=== PATIENT | female | born 1995 | race Caucasian/White ===

== ENCOUNTER 2017-06-22 21:04 | Emergency (ER) | payer MEDICAID ==
[2017-06-22 21:04] VITALS: BMI 36.6
--- NOTE | 2017-06-22 22:43 | C.PDOC ---
History Of Present Illness 21 year old female presents to the ED c/o cough, subjective fever and left earache for the past 3 days. Patient states she took Mucinex with some improvement to her symptoms. Patient's daughter also a patient in the ED with similar symptoms. Patient denies nausea, vomit, diarrhea, abdominal pain. Time Seen by Provider: 06/22/17 21:55 Chief Complaint (Nursing): Flu-like Symptoms History Per: Patient History/Exam Limitations: no limitations Onset/Duration Of Symptoms: Days Current Symptoms Are (Timing): Gone Location Of Pain: Ear(s) Associated Symptoms: Fever, Cough Recent travel outside of the [place]: No Additional History Per: Patient Past Medical History Reviewed: Historical Data, Nursing Documentation, Vital Signs Vital Signs: Last Vital Signs Temp 98.2 F 06/22/17 21:33 Pulse 81 06/22/17 21:33 Resp 24 06/22/17 21:33 BP 112/79 06/22/17 21:33 Pulse Ox 99 06/22/17 22:43 - Medical History PMH: No Chronic Diseases Surgical History: No Surg Hx Family History: States: Unknown Family Hx - Social History Hx Tobacco Use: No Hx Alcohol Use: No Hx Substance Use: No - Immunization History Hx Tetanus Toxoid Vaccination: No Hx Influenza Vaccination: No Hx Pneumococcal Vaccination: No Review Of Systems Constitutional: Positive for: Fever. Negative for: Chills ENT: Positive for: Ear Pain. Negative for: Nose Discharge Cardiovascular: Negative for: Chest Pain Respiratory: Positive for: Cough. Negative for: Shortness of Breath Gastrointestinal: Negative for: Nausea, Vomiting, Abdominal Pain Skin: Negative for: Rash Neurological: Negative for: Weakness, Numbness Physical Exam - Physical Exam Appears: Non-toxic, No Acute Distress Skin: Normal Color, Warm, Dry Head: Atraumatic, Normacephalic Eye(s): bilateral: Normal Inspection Ear(s): Bilateral: Normal Nose: No Discharge, No Deformity Oral Mucosa: Moist Throat: Normal, No Erythema, No Exudate Neck: Normal ROM, Supple Chest: Symmetrical Cardiovascular: Rhythm Regular, No Murmur Respiratory: Normal Breath Sounds, No Rales, No Rhonchi, No Wheezing Gastrointestinal/Abdominal: Soft, No Tenderness, No Guarding, No Rebound Extremity: Normal ROM, No Tenderness, No Swelling Neurological/Psych: Oriented x3, Normal Speech, Normal Cognition Gait: Steady ED Course And Treatment O2 Sat by Pulse Oximetry: 99 (On RA) Pulse Ox Interpretation: Normal Progress Note: Patient is resting comfortably, and is in no acute distress. Patient was instructed to follow up with PMD in 1-2 days for further evaluation. Disposition Counseled Patient/Family Regarding: Diagnosis, Need For Followup, Rx Given - Disposition Referrals: Kaden Carroll MD [Staff Provider] - Disposition: HOME/ ROUTINE Disposition Time: 22:41 Condition: STABLE Additional Instructions: Increase PO fluids Gargle salt water Tylenol or advil for pain Return to ER if worse Instructions: Viral Syndrome (ED) Forms: [employer] (South Korean) - Clinical Impression Clinical Impression: Viral illness - PA / MARKETING STRATEGY ANALYST / Resident Statement MD/DO has reviewed & agrees with the documentation as recorded. - Scribe Statement The provider has reviewed the documentation as recorded by the Scribe Héctor See All medical record entries made by the Scribe were at my direction and personally dictated by me. I have reviewed the chart and agree that the record accurately reflects my personal performance of the history, physical exam, medical decision making, and the department course for this patient. I have also personally directed, reviewed, and agree with the discharge instructions and disposition.
[2017-06-22 23:47] VITALS: BP 121/70; PULSE 78; RESP 20; TEMP 97.8
[2017-06-23 07:04] VITALS: O2SAT 99
== END 2017-06-22 23:47 | disposition home or self-care (01) ==
LOC: C.ER 21:04
DX: B34.9 Viral infection, unspecified (principal)

== ENCOUNTER 2017-11-21 20:00 | Emergency (ER) | payer MEDICAID ==
[2017-11-21 20:00] VITALS: BMI 36.6
[2017-11-21 20:35] LABS: HCG,QUALITATIVE URINE NEGATIVE (NEGATIVE)
[2017-11-21 20:39] LABS: SQUAMOUS EPITHIAL 8 /hpf (0-5); URINE BILIRUBIN NEGATIVE (NEGATIVE); URINE BLOOD 3+ (NEGATIVE); URINE CLARITY Hazy (Clear); URINE COLOR Yellow (YELLOW); URINE GLUCOSE (UA) NORMAL (Normal); URINE LEUKOCYTE ESTERASE 1+ Leu/uL (Negative); URINE PROTEIN NEGATIVE (NEGATIVE); URINE UROBILINOGEN NORMAL mg/dL (0.2-1.0)
--- NOTE | 2017-11-21 22:05 | C.PDOC ---
Time Seen by Provider: 11/21/17 20:30 Chief Complaint (Nursing): Abdominal Pain History Per: Patient Onset/Duration Of Symptoms: Days (about 1 month), Intermittent Episodes Current Symptoms Are (Timing): Still Present Severity: Moderate Location Of Pain/Discomfort: Diffuse Quality Of Discomfort: Cramping Associated Symptoms: Diarrhea Exacerbating Factors: Food Additional History Per: Prior Records Past Medical History Reviewed: Historical Data, Nursing Documentation, Vital Signs Vital Signs: Last Vital Signs Temp 98.1 F 11/21/17 20:02 Pulse 68 11/21/17 20:02 Resp 20 11/21/17 20:02 BP 131/70 11/21/17 20:02 Pulse Ox 98 11/21/17 20:02 - Medical History PMH: No Chronic Diseases Surgical History: No Surg Hx Family History: States: Unknown Family Hx - Social History Hx Tobacco Use: No Hx Alcohol Use: No Hx Substance Use: No - Immunization History Hx Tetanus Toxoid Vaccination: No Hx Influenza Vaccination: No Hx Pneumococcal Vaccination: No Review Of Systems Except As Marked, All Systems Reviewed And Found Negative. Constitutional: Negative for: Fever, Weakness Cardiovascular: Negative for: Chest Pain Respiratory: Negative for: Shortness of Breath Gastrointestinal: Positive for: Abdominal Pain, Diarrhea. Negative for: Vomiting Genitourinary: Positive for: Vaginal Bleeding (x 3 days). Negative for: Dysuria Musculoskeletal: Negative for: Neck Pain Skin: Negative for: Rash Neurological: Negative for: Weakness, Numbness Physical Exam - Physical Exam Appears: Non-toxic, No Acute Distress Skin: Normal Color, Warm, Dry, No Rash Head: Atraumatic, Normacephalic Eye(s): bilateral: Normal Inspection, PERRL, EOMI Oral Mucosa: Moist Neck: Normal ROM, Supple Cardiovascular: Rhythm Regular Respiratory: Normal Breath Sounds, No Accessory Muscle Use Gastrointestinal/Abdominal: Soft, Tenderness (mild, nonspecific), No Distention , No Guarding, No Rebound Back: No CVA Tenderness Pelvic: Vaginal Bleeding (mild), No Vaginal Discharge, Other (IUD String visible ) Extremity: Normal ROM Neurological/Psych: Oriented x3, Normal Motor, Normal Sensation ED Course And Treatment - Laboratory Results Urine POC: Negative O2 Sat by Pulse Oximetry: 98 Pulse Ox Interpretation: Normal Progress Note: Pt was seen at [facility] ED yesterday and had unremarkable CT abd/ pelv and labs. Disposition Counseled Patient/Family Regarding: Studies Performed, Diagnosis, Need For Followup, Rx Given - Disposition Referrals: Christie Carroll MD [Medical Doctor] - Disposition: HOME/ ROUTINE Disposition Time: 22:06 Condition: STABLE Additional Instructions: Follow up with your doctor for further evaluation and treatment. Return to the ER if you develop fever, vomiting, worsening of symptoms or if you have any other concerns. Prescriptions: Dicyclomine [Bentyl] 20 mg PO QID PRN #30 tab PRN Reason: Irritable Bowel Symptoms Instructions: Diarrhea in Adolescents and Adults - Clinical Impression Clinical Impression: Abdominal pain, Diarrhea, Vaginal bleeding
[2017-11-21 22:23] VITALS: BP 126/82; PULSE 74; RESP 18; TEMP 98.2; O2SAT 100
== END 2017-11-21 22:24 | disposition home or self-care (01) ==
LOC: C.ER 20:00
DX: R10.9 Unspecified abdominal pain (principal); R19.7 Diarrhea, unspecified; N93.9 Abnormal uterine and vaginal bleeding, unspecified

== ENCOUNTER 2018-09-03 13:34 | Emergency (ER) | payer MEDICAID ==
[2018-09-03 13:50] VITALS: TEMP 98.7; O2SAT 100; BMI 35.4
--- NOTE | 2018-09-03 14:15 | C.PDOC ---
History Of Present Illness 22 y/o female comes in to ED complaining of RLQ pain for the last couple of days, with mild nausea but no vomiting. Patient denies change in appetite, fever, vaginal bleeding or discharge, dysuria, hematuria, or blood in stool. Time Seen by Provider: 09/03/18 14:01 Chief Complaint (Nursing): Abdominal Pain History Per: Patient History/Exam Limitations: no limitations Onset/Duration Of Symptoms: Days Current Symptoms Are (Timing): Still Present Past Medical History Reviewed: Historical Data, Nursing Documentation, Vital Signs Vital Signs: Last Vital Signs Temp 98.7 F 09/03/18 13:50 Pulse 68 09/03/18 13:50 Resp 16 09/03/18 13:50 BP 109/74 09/03/18 13:50 Pulse Ox 100 09/03/18 13:50 Family History: States: No Known Family Hx - Social History Hx Tobacco Use: No Hx Alcohol Use: No Hx Substance Use: No - Immunization History Hx Tetanus Toxoid Vaccination: No Hx Influenza Vaccination: No Hx Pneumococcal Vaccination: No Review Of Systems Except As Marked, All Systems Reviewed And Found Negative. Constitutional: Negative for: Fever Gastrointestinal: Positive for: Nausea, Abdominal Pain (RLQ). Negative for: Vomiting, Hematochezia Genitourinary: Negative for: Dysuria, Hematuria, Vaginal Discharge, Vaginal Bleeding Physical Exam - Physical Exam Appears: Non-toxic, No Acute Distress Skin: Warm, Dry Head: Atraumatic Eye(s): bilateral: Normal Inspection Oral Mucosa: Moist Neck: Supple Cardiovascular: Rhythm Regular, No Murmur Gastrointestinal/Abdominal: Soft, Tenderness (mild RLQ and suprapubic tenderne ss), No Guarding, No Rebound Back: No CVA Tenderness Extremity: Bilateral: Atraumatic, Normal ROM Neurological/Psych: Oriented x3, Normal Speech ED Course And Treatment - Laboratory Results Result Diagrams: 09/03/18 14:47 09/03/18 14:47 O2 Sat by Pulse Oximetry: 100 (RA) Pulse Ox Interpretation: Normal - CT Scan/US Abd/Pel CT Other Rad Studies (CT/US): Read By Radiologist, Radiology Report Reviewed CT/US Interpretation: FINDINGS: LOWER THORAX: Unremarkable. LIVER: Unremarkable. No gross lesion or ductal dilatation. GALLBLADDER AND BILE DUCTS: Unremarkable. PANCREAS: Unremarkable. No gross lesion or ductal dilatation. SPLEEN: Unremarkable. ADRENALS: Unremarkable. No mass. KIDNEYS AND URETERS: Unremarkable. No hydronephrosis. No solid mass. VASCULATURE: Unremarkable. No aortic aneurysm. No aortic atherosclerotic calcification or mural plaque present. BOWEL: Sigmoid diverticulosis. No evidence of diverticulitis. No other abnormal bowel loops are identified. No bowel obstruction.. APPENDIX: Normal appendix. PERITONEUM: Unremarkable. No free fluid. No free air. LYMPH NODES: No retroperitoneal or pelvic lymphadenopathy. There are numerous shotty subcentimeter lymph nodes within the small bowel mesentery. There are multiple subcentimeter nodes medial to the cecum/ascending colon, the largest of which measures 8 mm in short axis. The findings are suggestive of mesenteric adenitis . Please correlate clinically. BLADDER: Poorly distended. Grossly unremarkable. REPRODUCTIVE: Uterus significant for the presence of an intrauterine device. There is a 2.2 cm right ovarian cyst. BONES: No acute fracture. OTHER FINDINGS: None. IMPRESSION: No evidence of acute appendiciti s. Suspected mesenteric adenitis. 2.2 cm right ovarian cyst. Sigmoid diverticulosis without evidence of diverticulitis. No additional abnormality. Medical Decision Making Medical Decision Making: Plan: --Abd/Pel CT --Labs --UA --Toradol IVP --POC urine test Disposition - Disposition [facility] - Disposition: HOME/ ROUTINE Disposition Time: 16:30 Condition: GOOD Additional Instructions: JEREMÍAS PEDROZA, thank you for letting us take care of you today. The emergency medical care you received today was directed at your acute symptoms. If you were prescribed any medication, please fill it and take as directed. It may take several days for your symptoms to resolve. Return to the Emergency Department if your symptoms worsen, do not improve, or if you have any other problems. Please contact your doctor or call one of the physicians/clinics you have been referred to that are listed on the Patient Visit Information form that is included in your discharge packet. Bring any paperwork you were given at discharge with you along with any medications you are taking to your follow up visit. Our treatment cannot replace ongoing medical care by a primary care provider outside of the emergency department. Thank you for allowing the [facility] team to be part of your care today. Follow up with your primary care doctor in 3-5 days for re-evaluation and further management. Prescriptions: Ibuprofen [Motrin] 600 mg PO Q6 PRN #20 tab PRN Reason: Pain, Moderate (4-7) Instructions: Ovarian Cyst (DC) Forms: [employer] (Djiboutian) - Clinical Impression Clinical Impression: Ovarian cyst - Scribe Statement The provider has reviewed the documentation as recorded by the Corneliusibe Nano Boyce Provider Attestation: All medical record entries made by the Scribe were at my direction and personally dictated by me. I have reviewed the chart and agree that the record accurately reflects my personal performance of the history, physical exam, medical decision making, and the department course for this patient. I have also personally directed, reviewed, and agree with the discharge instructions and disposition.
[2018-09-03 14:53] LABS: BASO % 0.2 % (0.0-2.0); EOS # 0.1 K/uL (0.0-0.7); EOS % 1.3 % (0.0-4.0); HEMOGLOBIN 11.6 g/dL (11.0-16.0); LYMPH # 2.3 K/uL (1.0-4.3); LYMPH % 41.5 % (20.0-40.0); MEAN CELL VOLUME 82.6 fL (81.0-99.0); MEAN CORPUSCULAR HEMOGLOBIN 26.8 pg (27.0-31.0); MEAN CORPUSCULAR HGB CONC 32.4 g/dL (33.0-37.0); MEAN PLATELET VOLUME 9.5 fL (7.2-11.7); MONO # 0.5 K/uL (0.0-0.8); MONO % 8.4 % (0.0-10.0); NEUT # 2.7 K/uL (1.8-7.0); NEUT % 48.6 % (50.0-75.0); RBC 4.35 Mil/uL (3.80-5.20); RED CELL DISTRIBUTION WIDTH 14.7 % (11.5-14.5); SQUAMOUS EPITHIAL 12 /hpf (0-5); URINE BACTERIA RARE (<OCC); URINE BILIRUBIN NEGATIVE (NEGATIVE); URINE BLOOD NEGATIVE (NEGATIVE); URINE CLARITY Hazy (Clear); URINE COLOR Yellow (YELLOW); URINE GLUCOSE (UA) NORMAL (Normal); URINE LEUKOCYTE ESTERASE TRACE Leu/uL (Negative); URINE PROTEIN NEGATIVE (NEGATIVE); URINE UROBILINOGEN NORMAL mg/dL (0.2-1.0); WHITE BLOOD COUNT 5.6 K/uL (4.8-10.8)
[2018-09-03 15:04] LABS: ALB/GLOB RATIO 1.6 (1.0-2.1); ALBUMIN 4.3 g/dL (3.5-5.0); ALT/SGPT 14 U/L (9-52); AST/SGOT 29 U/L (14-36); BLOOD UREA NITROGEN 8 mg/dL (7-17); CALCIUM 9.4 mg/dl (8.6-10.4); GFR NON-AFRICAN AMERICAN > 60; LIPASE 52 U/L (23-300)
[2018-09-03] MEDS ORDERED: Iodixanol 320 MG/ML 100 ML BOTTLE IV ONE (15:29)
--- NOTE | 2018-09-03 16:31 | CT ---
Date of service: 09/03/2018 PROCEDURE: CT Abdomen and Pelvis with contrast HISTORY: RLQ/suprapubic pain/tenderness COMPARISON: Not available TECHNIQUE: Contrast dose: 100 mL Visipaque 320 Radiation dose: Total exam DLP = 1047.29 mGy-cm. This CT exam was performed using one or more of the following dose reduction techniques: Automated exposure control, adjustment of the mA and/or kV according to patient size, and/or use of iterative reconstruction technique. FINDINGS: LOWER THORAX: Unremarkable. LIVER: Unremarkable. No gross lesion or ductal dilatation. GALLBLADDER AND BILE DUCTS: Unremarkable. PANCREAS: Unremarkable. No gross lesion or ductal dilatation. SPLEEN: Unremarkable. ADRENALS: Unremarkable. No mass. KIDNEYS AND URETERS: Unremarkable. No hydronephrosis. No solid mass. VASCULATURE: Unremarkable. No aortic aneurysm. No aortic atherosclerotic calcification or mural plaque present. BOWEL: Sigmoid diverticulosis. No evidence of diverticulitis. No other abnormal bowel loops are identified. No bowel obstruction.. APPENDIX: Normal appendix. PERITONEUM: Unremarkable. No free fluid. No free air. LYMPH NODES: No retroperitoneal or pelvic lymphadenopathy. There are numerous shotty subcentimeter lymph nodes within the small bowel mesentery. There are multiple subcentimeter nodes medial to the cecum/ascending colon, the largest of which measures 8 mm in short axis. The findings are suggestive of mesenteric adenitis. Please correlate clinically. BLADDER: Poorly distended. Grossly unremarkable. REPRODUCTIVE: Uterus significant for the presence of an intrauterine device. There is a 2.2 cm right ovarian cyst. BONES: No acute fracture. OTHER FINDINGS: None. IMPRESSION: No evidence of acute appendicitis. Suspected mesenteric adenitis. 2.2 cm right ovarian cyst. Sigmoid diverticulosis without evidence of diverticulitis. No additional abnormality.
[2018-09-03 16:56] VITALS: BP 104/71; PULSE 66; RESP 20
== END 2018-09-03 16:56 | disposition home or self-care (01) ==
LOC: C.ER 13:34
DX: N83.209 Unspecified ovarian cyst, unspecified side (principal)
CPT/HCPCS: 74177; 80053; 81001; 81025; 83690; 85025; 87086; 96374; 99283; J1885; Q9967